=== PATIENT | female | born 1990 | race Caucasian/White ===

== ENCOUNTER → 2021-01-09 15:38 | Outpatient (CLI) | payer OTHER, SELFPAY ==
--- NOTE | ~2021-01-09 | MM_ITS ---
EXAMINATION: MM screening cherry BI w key HISTORY: Screening TECHNIQUE: Craniocaudal and mediolateral oblique 3-D tomosynthesis images were obtained and synthetic 2-D images were generated. CAD analysis was submitted and interpreted. COMPARISON: No prior mammogram is available for comparison at this institution. BREAST PARENCHYMAL COMPOSITION: There are scattered areas of fibroglandular density. FINDINGS: There is no evidence of suspicious mass, calcification, or architectural distortion to sugg est malignancy in either breast. There has been no suspicious interval change. IMPRESSION: 1. No mammographic evidence of malignancy. 2. Recommend routine screening mammography in one year. BI-RADS Category 1: Negative Reviewed, dictated and finalized at location A.
== END ==
PROVIDERS: Visit Provider Obstetrics & Gynecology
DX: Z12.31 Encounter for screening mammogram for malignant neoplasm of breast (principal)
CPT/HCPCS: 77063; 77067

== ENCOUNTER 2022-08-03 10:02 | Outpatient (CLI) | payer OTHER, SELFPAY ==
--- NOTE | ~2022-08-03 | XR_ITS ---
Right wrist Technique: PA and lateral views were obtained. Clinical History: Pain Findings: No acute fracture or dislocation is seen. Osseous alignment is anatomic. Joint spaces are p reserved. Soft tissues are unremarkable. Impression: Unremarkable right wrist radiographs. Reviewed, dictated and finalized at location M. GE MILL OPERATOR Impression: Unremarkable right wrist radiographs.
== END 2022-08-03 10:03 ==
LOC: MICIMG 10:04
PROVIDERS: PCP Family Medicine; Visit Provider Physician Assistant Medical
DX: M25.539 Pain in unspecified wrist (principal)
CPT/HCPCS: 73100

== ENCOUNTER → 2022-09-29 12:21 | Outpatient (CLI) | payer OTHER, SELFPAY ==
--- NOTE | ~2022-09-29 | MM_ITS ---
EXAMINATION: MM screening cherry BI w key HISTORY: Screening mammogram TECHNIQUE: Craniocaudal and mediolateral oblique 3-D tomosynthesis images were obtained and synthetic 2-D images were generated. CAD analysis was submitted and interpreted. COMPARISON: 01/09/2021 bilateral screening mammogram BREAST PARENCHYMAL COMPOSITION: The breasts are almost entirely fatty. FINDINGS: There is no evidence of suspicious mass, calcification, or architectural distortion to sugg est malignancy in either breast. There has been no suspicious interval change. IMPRESSION: 1. No mammographic evidence of malignancy. 2. Recommend routine screening mammography in one year. BI-RADS Category 1: Negative Reviewed, dictated and finalized at location A.
== END ==
PROVIDERS: PCP Family Medicine; Visit Provider Obstetrics & Gynecology
DX: Z12.31 Encounter for screening mammogram for malignant neoplasm of breast (principal)
CPT/HCPCS: 77063; 77067

== ENCOUNTER 2022-11-16 10:30 | Outpatient (RCR) | payer OTHER, SELFPAY ==
[2022-10-20 09:26] VITALS: BMI 50.3
== END 2022-11-22 08:31 | disposition home or self-care (01) ==
LOC: ANHDMC 10:30
PROVIDERS: PCP Family Medicine; Visit Provider Family Medicine
DX: E11.9 Type 2 diabetes mellitus without complications (principal); Z68.43 Body mass index [BMI] 50.0-59.9, adult; Z71.89 Other specified counseling; Z71.3 Dietary counseling and surveillance
CPT/HCPCS: 97802; G0108

== ENCOUNTER 2023-08-10 13:16 | Emergency (ER) | payer OTHER, SELFPAY ==
[2023-08-10] VITALS (19 sets, daily range): BP systolic 128–153; BP diastolic 81–94; PULSE 82–101; RESP 14–23; TEMP 36.6–36.9; O2SAT 93–100
--- NOTE | ~2023-08-10 | XR_ITS ---
EXAMINATION: XR chest 2V DATE: 08/10/2023 14:00 INDICATION: Dizziness TECHNIQUE: PA and lateral views of the chest are obtained. COMPARISON: 02/09/2018 FINDINGS: The lungs are free of acute opacities. No pleural effusion or pneumothorax. The cardiomedia stinal silhouette is normal. The visualized bones and soft tissues are unremarkable. IMPRESSION: 1. No acute cardiopulmonary abnormality. Reviewed, dictated and finalized at location B. ST FIRE PREVENTION SPECIALIST
--- NOTE | 2023-08-10 13:23 | ECG_ITS ---
Measurements Intervals Stitzer Rate: 97 P: 26 NE: 159 QRS: 79 QRSD: 95 T: 53 QT: 346 QTc: 441 Interpretive Statements SINUS RHYTHM BASELINE ARTIFACT- I, III, AVL, AVF NORMAL ECG NO PREVIOUS ECG AVAILABLE FOR COMPARISON Electronically Signed On 08-10-2023 14:11:50 STONECUTTER ASSISTANT by Kyle Springer D.O.
--- NOTE | 2023-08-10 13:24 | ED.DIZZY ---
HPI - Dizziness General Chief Complaint: Dizziness <Sil Frankel PA-C - Last Filed: 08/12/23 20:26> Stated Complaint: dizzy <Sil Frankel PA-C - Last Filed: 08/12/23 20:26> Time Seen by Provider: 08/10/23 13:24 <Sil Frankel PA-C - Last Filed: 08/12/23 20:26> Focused HPI: This is a 33 year old female that presents to the ER for dizziness ongoing today. Reports room spinning dizziness as well as lightheadedness. Reports palpitations/heart racing. Denies fevers, chest pain or shortness of breath. GENERAL: Well-appearing, well-nourished, and in no acute distress. HEAD: Normocephalic, atraumatic. CHEST: Clear to auscultation. ?No respiratory distress. HEART: Regular rate and rhythm.? NEURO: ?Alert and oriented x3. Patient screened in triage and initial orders placed.? ?Additional care and disposition to be based upon?diagnostic testing and treatment. <Sil Frankel PA-C - Last Filed: 08/12/23 20:26> History of Present Illness HPI Narrative: Patient is a 33-year-old female presenting with dizziness. Patient states that she was at work when she felt a popping sensation in her ear. It she then developed vertigo. States that it felt like the room was spinning and she had to sit down. It improved slightly and she was able to walk to the bathroom if she continued to feel dizzy so she called her who brought her in for evaluation. States that the vertigo has completely resolved and now she just feels a little lightheaded. No speech or vision changes. No numbness or weakness. No headache or neck pain. Denies any other complaints. 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 Diabetes type 2, controlled induced hypertension <Sil Frankel PA-C - Last Filed: 08/12/23 20:26> Surgical History Surgical History: Surgical History Delivery by section <Sil Frankel PA-C - Last Filed: 08/12/23 20:26> Family History Family History: Family History Mother Congestive heart failure Diabetes mellitus Dementia Hypertension Hyperlipidemia Acute myocardial infarction Father Blood clot in vein Sibling Alcoholism <Sil Frankel PA-C - Last Filed: 08/12/23 20:26> Social History Social History: Social History Smoking packs per day: 0.5 Smoking cigarettes per day: 10.0 Years smoked: 10 Smoking pack-years: 5.00 Smoking status: Former smoker Second hand tobacco smoke exposure: No Alcohol intake: current Substance use: never Substance use type: does not use Lack of Transportation: No Lack of Food: Never True Current Housing: I Have Housing Concerned About Future Housing: No Difficulty Paying Gas/Electric Bills: No Difficulty Paying for Meds: No Currently Unemployed: No Education: High School Diploma/GED Difficulty w/ Childcare or Family Care: No Living arrangements: with family Occupation/Education: occupation Additional occupation/education comments: Teacher Gender identity (if verbalized by the patient): Female Spiritual care concerns: No <Sil Frankel PA-C - Last Filed: 08/12/23 20:26
[2023-08-10 13:55] LABS: Basophils Percent Auto 0.5 % (0.2-1.2); Eosinophils Absolute Auto 0.2 K/mm3 (0-0.3); Hemoglobin 14.2 g/dL (12.0-15.0); Immature Granulocyte Absolute 0.02 K/mm3 (0.00-0.031); Immature Granulocyte Percent A 0.3 % (0-0.5); Lymphocytes Percent Auto 23.4 % (18.3-44.2); Mean Corpuscular HGB Conc 32.3 g/dl (32-36); Mean Corpuscular Hemoglobin 29.2 pg (26-34); Mean Corpuscular Volume 90.3 fl (80-100); Mean Platelet Volume 9.6 fl (7.4-10.4); Monocytes Absolute Auto 0.3 K/mm3 (0.1-0.6); Monocytes Percent Auto 5.3 % (2.6-8.5); Neutrophils Absolute Auto 4.3 K/mm3 (1.3-6.7); Neutrophils Percent Auto 67.5 % (45.5-73.1); Platelet Count Result 286 k/mm3 (150-375); Red Blood Count 4.87 M/mm3 (4.2-5.4); Red Cell Distribution Width 13.6 % (11.5-14.5); White Blood Count 6.4 K/mm3 (4.5-10.0)
[2023-08-10 13:58] LABS: Appearance Urine Clear (Clear); Bacteria Urine None Seen /hpf; Bilirubin Urine Negative (Negative); Blood Urine 3+ (Negative); Color Urine Yellow (Yellow); Glucose Urine UA Negative (Negative); Ketones Urine Negative (Negative); Leukocyte Esterase Ur Negative LEU/UL (Negative); Nitrate Urine Negative (Negative); Non Pathogenic Casts 0-2; Protein Urine Negative (Negative); RBC Urine 51-100 /hpf (0-2); Specific Grav Ur 1.007 (1.001-1.035); Squamous Epithelial Cell Urine Occasional /hpf (Few); Urobilinogen Urine 0.2 mg/dL (<2.0); WBC Urine 0-5 /hpf; pH Urine 7.5 (5.0-9.0)
[2023-08-10 14:08] LABS: Add Urine Microscopic? YES
[2023-08-10 14:13] LABS: Alanine Aminotransferase 19 U/L (6-35); Albumin Level 4.3 g/dL (3.5-5.1); Alkaline Phosphatase 91 U/L (38-126); Anion Gap 5 mmol/L (8-16); Aspartate Amino Transferase 23 U/L (14-36); Bilirubin,Total 0.3 mg/dL (0.2-1.3); Blood Urea Nitrogen 12 mg/dL (7-17); Calcium 9.2 mg/dL (8.4-10.2); Carbon Dioxide 29 mmol/L (22-30); Chloride 104 mmol/L (98-107); Estimated CRCL calculation 121 ml/min; Estimated Glomerular Filt Rate > 60; Glucose 120 mg/dL (65-110); Potassium 4.1 mmol/L (3.4-5.0); Sodium 138 mmol/L (137-145)
[2023-08-10] MEDS: MECLIZINE HCL 25 MG TABLET PO (19:15)
[2023-08-10] MEDS: SODIUM CHLORIDE 0.9% IV 1,000 ML 999 ML IV CONT (19:16)
== END 2023-08-10 20:52 | disposition home or self-care (01) ==
PROVIDERS: Physician Assistant; Emergency Provider Emergency Medicine; PCP Family Medicine
DX: R42 Dizziness and giddiness (principal); E11.9 Type 2 diabetes mellitus without complications
CPT/HCPCS: 36415; 71046; 80053; 81001; 85025; 93005; 96360; 99283; A9270; J7030

== ENCOUNTER 2024-09-15 08:50 | Emergency (ER) | payer OTHER, SELFPAY ==
[2024-09-15 09:26] VITALS: BP 124/72; PULSE 86; RESP 16; TEMP 36.2; O2SAT 100
--- NOTE | 2024-09-15 09:56 | ED.GENADULT ---
HPI - General Adult General Chief complaint: Upper Respiratory Infection Stated complaint: COUGH/WHEEZING/SOB Time Seen by Provider: 09/15/24 09:56 Source: patient Mode of arrival: ambulatory Limitations: no limitations History of Present Illness HPI narrative: 34-year-old female patient presents to the [facility] with complaints of cold symptoms that started yesterday. Patient any fevers that she is aware of but states she has had some chills, body aches, congestion, runny nose. Patient states she has had a cough with some shortness of breath at times and feels like she is wheezing. Patient states she has history of childhood asthma but has never been treated for asthma as an adult. Denies any nausea vomiting diarrhea. Patient states she does have shortness of breath at times when coughing. Patient has only taken Tylenol for symptoms. Related Data Allergies Allergy/AdvReac Type Severity Reaction Status Date / Time Penicillins Allergy Severe HIVES Verified 07/09/24 14:55 Review of Systems Review of Systems: CONSTITUTIONAL: Denies fever, positive body aches and chills, denies sweats. EYES: Denies visual changes, redness, or discharge. ENT: Positive rhinorrhea, congestion, denies sore throat, or otalgia. CARDIOVASCULAR: Denies chest pain, palpitations, or edema. RESPIRATORY: positive cough with intermittent dyspnea. GASTROINTESTINAL: Denies abdominal pain, nausea, vomiting, or diarrhea. GENITOURINARY: Denies dysuria or hematuria. SKIN: Denies rash or itching. MUSCULOSKELETAL: Denies back pain, joint pain, or myalgia. NEUROLOGIC: positive headache, denies numbness, or weakness. PSYCHIATRIC: Denies anxiety or depression. 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 BMI 50.0-59.9, adult Diabetes type 2, controlled induced hypertension Surgical History Surgical History Delivery by section Family History Family History Mother Congestive heart failure Diabetes mellitus Dementia Hypertension Hyperlipidemia Acute myocardial infarction Father Blood clot in vein Sibling Alcoholism Social History Social History Smoking packs per day: 0.5 Smoking cigarettes per day: 10.0 Years smoked: 10 Smoking pack-years: 5.00 Smoking status: Former smoker Second hand tobacco smoke exposure: No Alcohol intake: current Substance use: never Substance use type: does not use Lack of Transportation: No Lack of Food: Never True Current Housing: I Have Housing Concerned About Future Housing: No Difficulty Paying Gas/Electric Bills: No Difficulty Paying for Meds: No Currently Unemployed: No Education: High School Diploma/GED Difficulty w/ Childcare or Family Care: No Living arrangements: with family Occupation/Education: occupation Additional occupation/education comments: Teacher Gender identity (if verbalized by the patient): Female Spiritual care concerns: No Comments At the time of my signature I agree with nursing past medical history, surgical, social, and family history. There is no relevant family history pertinent to the presenting complaint. Exam Narrative: GENERAL: Well-appearing, well-nourished, and in no acute distress. HEAD: Normocephalic, atraumatic. EYES: PERRLA and EOMI. ENT: Nares with erythema edema noted bilaterally, no rhinorrhea or epistaxis. Mucous membranes moist. posterior pharynx with no erythema, tonsillar enlargement, exudates or lesions present. Bilateral TMs are clear no erythema or foreign bodies the canal. NECK: Supple. No lymphadenopathy CHEST: Patient has expiratory wheezing noted to left lower lobe on auscultation decreased lung sounds noted to right lower lobe and bilateral upper lobes.. No respiratory distress. Dry cough noted during exam HEART: Regular rate and rhythm. No murmur heard. Normal peripheral pulses. ABDOMEN: Soft, nontender, nondistended, normal active bowel sounds. EXTREMITIES: Normal range of motion. No edema. SKIN: Warm, dry, no rash. NEURO: No focal deficits. Alert and oriented x3. Course Course Level of Care: Express Care Visit Reevaluation(s) Reevaluation #1: Re-evaluated patient after receiving breathing treatment. Patient states she is feeling much better after the breathing treatment there is still a little bit of inspiratory and expiratory wheezing noted to the left upper and lower lobes but has improved from before the breathing treatment. Discussed with patient our discharge plan will be to discharge her home with oral steroids, and albuterol inhaler and Tessalon Perles for the cough. Discussed with her this is most likely viral and will take some time to go get over. Patient verbalized understanding denies any other questions or concerns at this time. Date: 09/15/24 Time: 10:39 Vital Signs Vital signs: Vital Signs Temperature 36.2 C L 09/15/24 09:26 Pulse Rate 86 09/15/24 09:26 Respiratory Rate 16 09/15/24 09:26 Blood Pressure 124/72 09/15/24 09:26 Pulse Oximetry 100 09/15/24 09:26 Temperature 36.2 C L 09/15/24 09:26 Pulse Rate 90 09/15/24 10:25 Respiratory Rate 18 09/15/24 10:25 Blood Pressure 124/72 09/15/24 09:26 Pulse Oximetry 98 09/15/24 10:25 Oxygen Delivery Room Air 09/15/24 09:52 Vital signs reviewed. Medical Decision Making MDM Narrative Medical decision making narrative: plan care for patients to swab her today for influenza and COVID since her symptoms just started yesterday. We will also provide her breathing treatments in the clinic today to see if we can decrease the wheezing noted in the lung sounds. Differential Diagnosis Differential Diagnosis: Differential diagnosis: Allergic rhinitis, chronic sinusitis, tonsillitis, acute sinusitis, infectious mononucleosis, seasonal influenza, pertussis, diphtheria, meningococcal disease, viral syndrome, viral bronchitis, RSV, COVID-19 Vital Signs Vital Signs: Vital Signs Temperature 36.2 C L 09/15/24 09:26 Pulse Rate 86 09/15/24 09:26 Respiratory Rate 16 09/15/24 09:26 Blood Pressure 124/72 09/15/24 09:26 Pulse Oximetry 100 09/15/24 09:26 Temperature 36.2 C L 09/15/24 09:26 Pulse Rate 90 09/15/24 10:25 Respiratory Rate 18 09/15/24 10:25 Blood Pressure 124/72 09/15/24 09:26 Pulse Oximetry 98 09/15/24 10:25 Oxygen Delivery Room Air 09/15/24 09:52 Lab Data Labs: Lab Results 09/15/24 Range/Units 10:32 POC Influenza A Ag Negative (Negative) POC Influenza B Ag Negative (Negative) POC SARS CoV-2 Ag Negative (Negative) Critical Care Time Critical Care Time Critical Care Time: No Discharge Plan Discharge Clinical Impression: Viral URI with cough, Wheezing Patient Disposition: Home Condition: Stable Instructions: Antibiotic Form, Viral Syndrome (ED) Additional Instructions: Viral illness may last between 7-12days; antibiotic is NOT recommended at this time. Recommend antihistamine such as Benadryl at night time and Claritin/Zyrtec/Tiffanie during the day Cough syrup may cause drowsiness; avoid driving or take it at night time. Use inhaler as needed for cough, wheezing, shortness of breath or chest tightness. take oral steroids in the morning with food. Also, recommend symptomatic treatment includes: rest, fluids, and increase humidity of the air at home. Recommend Acetaminophen or nonsteroidal anti-inflammatory agents (NSAIDs) as directed in the bottle to reduce fever and/pain/headache. Avoid smoking/second-hand smoke. Limit visits to areas with large crowds. Please schedule a follow-up visit with your personal physician for further evaluation and treatment within 3-5days. Including recheck and discussion of your blood pressure. If your symptoms persist, change or worsen significantly before you can contact your personal physician then please, without delay, go to the emergency department for further evaluation. Patient Language: German Prescriptions: New benzonatate 200 mg capsule 200 mg PO TID PRN (Reason: cough) 10 Days Qty: 30 0RF prednisone 20 mg tablet 40 mg PO DAILY 5 Days Qty: 10 0RF albuterol sulfate [Ventolin HFA] 90 mcg/actuation HFA aerosol inhaler 2 puff INHALATION .Q4 hours PRN (Reason: cough) Qty: 18 0RF No Action metformin 500 mg tablet extended release 24 hr 500 mg PO ONCE Qty: 30 5RF meclizine 25 mg tablet 25 mg PO TID PRN (Reason: dizziness) Qty: 20 0RF (DME) OneTouch Verio test strips Strip See Rx Instructions .Route Qty: 100 0RF Rx Instructions: Test glucose bid for diabetes (DME) lancets [OneTouch Delica Lancets] 33 gauge misc See Rx Instructions .Route Qty: 100 0RF Rx Instructions: Test glucose bid for diabetes Ozempic 1 mg/dose (4 mg/3 mL) pen injector 1 mg subcut WEEKLY Qty: 3 2RF mupirocin 2 % ointment 1 applic topical BID Qty: 50 0RF Follow-up/Referrals: Willow Cruz, PAC [Primary Care Provider] - Time of Disposition: 10:39
[2024-09-15] MEDS: IPRATROPIUM 0.5 MG/ALBUTEROL SULFATE 2.5 MG AMPUL.NEB 3 ML INHALATION (10:12)
[2024-09-15 10:25] VITALS: PULSE 90; RESP 18; O2SAT 98
[2024-09-15 10:34] LABS: EDCOVIDSCREEN Negative (Negative); EDINFLUASCREEN Negative (Negative); EDINFLUBSCREEN Negative (Negative)
== END 2024-09-15 10:43 | disposition home or self-care (01) ==
PROVIDERS: Emergency Provider Nurse Practitioner Family; PCP Physician Assistant Medical
DX: J06.9 Acute upper respiratory infection, unspecified (principal); B97.89 Other viral agents as the cause of diseases classified elsewhere; R06.2 Wheezing; Z87.891 Personal history of nicotine dependence; Z20.822 Contact with and (suspected) exposure to COVID-19
CPT/HCPCS: 87426; 87804; 99213; G0463

== ENCOUNTER 2024-12-03 15:01 | Outpatient (CLI) | payer OTHER, SELFPAY ==
--- NOTE | ~2024-12-03 | MM_ITS ---
EXAMINATION: MM screening cherry BI w key HISTORY: Screening mammogram, family history of breast cancer in her mother. TECHNIQUE: Craniocaudal and mediolateral oblique 3-D tomosynthesis images were obtained and synthetic 2-D images were generated. CAD analysis was submitted and interpreted. COMPARISON: 09/29/2022, 01/09/2021 BREAST PARENCHYMAL COMPOSITION:Not Dense. The breasts are almost entirely fatty FINDINGS: No suspicious mass, calcification, or architectural distortion are identified in either rylie ast to suggest malignancy. There has been no suspicious interval change. IMPRESSION: No mammographic evidence of malignancy. Recommend routine screening mammography in one year. BI-RADS Category 1: Negative Reviewed, dictated and finalized at location .
== END 2024-12-03 15:02 | disposition home or self-care (01) ==
LOC: MICIMG 15:02
PROVIDERS: PCP Obstetrics & Gynecology; Visit Provider Obstetrics & Gynecology
DX: Z12.31 Encounter for screening mammogram for malignant neoplasm of breast (principal)
CPT/HCPCS: 77063; 77067

== ENCOUNTER 2024-12-13 00:21 | Day surgery (SDC) | payer OTHER, SELFPAY ==
[2024-11-20 12:34] VITALS: BMI 47.0
--- OUTSIDE RECORDS SUMMARY | 2024-12-13 00:24 | XMS_ITS | Clinical Summary ---
Author Organization [facility] [address] Address [address] [place] [id number] Care Team Providers Care Bistro Server Name Role Phone Brisa Jean Baptiste Primary Care Provider [phone] Allergies Active Allergy Reactions Criticality Noted Date Comments Penicillins Hives Medium 08/06/2022 Medications metFORMIN XR (GLUCOPHAGE XR) 500 mg 24 hr tablet Take 500 mg by mouth 2 (two) times a day 06/20/2022 Active Active Problems No known active problems Social History Tobacco Use Types Packs/Day Years Used Date Smoking Tobacco: Never Assessed Comments Unknown Sex and Gender Information Value Date Recorded Sex Assigned at Not on file Legal Sex Female 5:24 PM STEREO OPERATOR Gender Identity Not on file Sexual Orientation Not on file Obstetrics History Last Filed Vital Signs Vital Sign Reading Time Taken Comments Blood Pressure 138/98 08/06/2022 7:14 PM STEREO OPERATOR Pulse 104 08/06/2022 7:14 PM STEREO OPERATOR Temperature 37.1 C (98.7 F) 08/06/2022 7:14 PM STEREO OPERATOR Respiratory Rate 20 08/06/2022 7:14 PM STEREO OPERATOR Oxygen Saturation 98% 08/06/2022 7:14 PM STEREO OPERATOR Inhaled Oxygen Concentration - - Weight 137 kg (302 lb) 08/06/2022 7:14 PM STEREO OPERATOR Height 162.6 cm (5' 4) 08/06/2022 7:14 PM STEREO OPERATOR Body Mass Index 51.84 08/06/2022 7:14 PM STEREO OPERATOR Plan of Treatment Health Maintenance Due Date Last Done Comments Cervical Cancer Screening 1988 Depression Screening 1988 Hepatitis C Screening 1988 Varicella Vaccines (1 of 2 - 13+ 2-dose series) 02/10/2001 Hepatitis B Screening 02/10/2006 Regular Well Visit/Exam 18-64 02/10/2006 Influenza Vaccine (Season Ended) 2025 DTaP/Tdap/Td Vaccine (2 - Td or Tdap) 06/07/2029 06/07/2019 HPV Vaccines Aged Out No longer eligi ble based on patient's age to complete this topic Pneumococcal vaccine <65 Aged Out No longer eligible based on patient's age to complete this topic Insurance [employer] OPEN ACCESS [employer] OPEN ACCESS Care Teams Bistro Server Relationship Specialty Start Date End Date Brisa Jean Baptiste [address] [facility] [address] [place] [address] PCP - General Corner Cutter Machine Operator 08/06/22
--- OUTSIDE RECORDS SUMMARY | 2024-12-13 00:24 | XMS_ITS | Referral Summary ---
Author Organization [facility] [place] [address] Address [address] [place] [id number] Care Team Providers Care Children'S Author Name Role Phone Brisa Jean Baptiste Primary Care Provider [phone] Allergies Active Allergy Reactions Criticality Noted Date [...] on file Legal Sex Female 5:24 PM TRAFFIC ROUTING ENGINEER Gender Identity Not on file Sexual Orientation Not on file Last Filed Vital Signs Vital Sign Reading Time Taken Comments Blood Pressure 138/98 08/06/2022 7:14 PM TRAFFIC ROUTING ENGINEER Pulse 104 08/06/2022 7:14 PM TRAFFIC ROUTING ENGINEER Temperature 37.1 C (98.7 F) 08/06/2022 7:14 PM TRAFFIC ROUTING ENGINEER Respiratory Rate 20 08/06/2022 7:14 PM TRAFFIC ROUTING ENGINEER Oxygen Saturation 98% 08/06/2022 7:14 PM TRAFFIC ROUTING ENGINEER Inhaled Oxygen Concentration - - Weight 137 kg (302 lb) 08/06/2022 7:14 PM TRAFFIC ROUTING ENGINEER Height 162.6 cm (5' 4) 08/06/2022 7:14 PM TRAFFIC ROUTING ENGINEER Body Mass Index 51.84 08/06/2022 7:14 PM TRAFFIC ROUTING ENGINEER Plan of Treatment Not on file Insurance [facility] OPEN ACCESS [facility] OPEN ACCESS [id number] [place] [id number] Care Teams Children'S Author Relationship Specialty Start Date End Date Brisa Jean Baptiste [address] [facility] [address] [place] [address] PCP - General Manager Agency 08/06/22
--- OUTSIDE RECORDS SUMMARY | 2024-12-13 00:24 | XMS_ITS | Clinical Summary ---
Author Organization [facility] [employer] Address [address] [place] [address] Care Team Providers Care Quality Assurance Qa Lab Analyst Name Role Phone Lloyd Rivas MD Unavailable [phone] Source Comments [facility],non-owned Affiliates and Associated Physician Practices is amultiple site organization consisting of ambulatory clinics and hospital sitesin [place], [place], [place] and [place]. This disclosure is being madepursuant to the Care Everywhere program and may not contain all information available regarding this patient. Last updated 18.[facility] [employer] Allergies Active Allergy Reactions Criticality Noted Date Comments Penicillins Rash,Swelling Medium 02/20/2016 Medications * Be aware that medications may not be up to date on this document. Alwaysverify current medications with the patient. METFORMIN HCL PO Active albuterol HFA (PROVENTIL;VENT ABRAM;PROAIR) 108 (90 BASE) MCG/ACT inhaler Inhale 2 puffs by mouth every 6 hours as needed for Shortness of Breath, Wheezing or Cough 1 Inhaler 9 Active fluticasone propionate (FLONASE) 50 MCG/ACT nasal spray [place] 2 sprays into each nostril once daily 1 bottles 9 Active ondansetron (ZOFRAN) 4 MG tablet Take 1 tablet by mouth every 8 hours as needed for Nausea/Vomitin g 15 tablet 9 Active Social History Tobacco Use Types Packs/Day Years Used Date Smoking Tobacco: Never Assessed Comments Unknown Sex and Gender Information Value Date Recorded Sex Assigned at Not on file Legal Sex Female 2:31 PM CDT Gender Identity Not on file Sexual Orientation Not on file Last Filed Vital Signs Vital Sign Reading Time Taken Comments Blood Pressure 122/74 07/28/2018 5:31 PM FISHERIES MANAGEMENT BIOLOGIST Pulse 97 07/28/2018 5:31 PM FISHERIES MANAGEMENT BIOLOGIST Temperature 36.8 C (98.2 F) 07/28/2018 5:31 PM FISHERIES MANAGEMENT BIOLOGIST Respiratory Rate - - Oxygen Saturation 97% 07/28/2018 5:31 PM FISHERIES MANAGEMENT BIOLOGIST Inhaled Oxygen Concentration - - Weight 127 kg (280 lb) 07/28/2018 5:31 PM FISHERIES MANAGEMENT BIOLOGIST Height 162.6 cm (5' 4) 07/28/2018 5:31 PM FISHERIES MANAGEMENT BIOLOGIST Body Mass Index 48.06 07/28/2018 5:31 PM FISHERIES MANAGEMENT BIOLOGIST Plan of Treatment Health Maintenance Due Date Last Done Comments HIV SCREENING 02/10/2003 HEPATITIS C SCREENING 02/06/2006 DTAP/TDAP/TD VACCINES (1 - Tdap) 02/10/2007 HEPATITIS B VACCINE (1 of 3 - 19+ 3-dose series) 02/10/2007 COVID-19 VACCINE (1 - 2023-2 5 season) 2024 DEPRESSION SCREENING 06/06/2024 INFLUENZA VACCINE (Season Ended) 2025 ZOSTER VACCINE (1 of 2) 02/10/2038 HIB VACCINE Aged Out No longer eligi ble based on patient's age to complete this topic HPV VACCINE Aged Out No longer eligi ble based on patient's age to complete this topic MENINGOCOCCAL (Group B) VACC INE SHARED DECISION-MAKING Aged Out No longer eligibl e based on patient's age to complete this topic MENINGOCOCCAL GROUPS A/C/Y/W VACCINE Aged Out No longer eligible b ased on patient's age to complete this topic PNEUMOCOCCAL VACCINE Aged Out No long er eligible based on patient's age to complete this topic Insurance [employer] Care Teams Quality Assurance Qa Lab Analyst Relationship Specialty Start Date End Date Lloyd Rivas MD Family Medicine 07/28/18
[2024-12-13 12:38] VITALS: BP 139/90; PULSE 94; RESP 18; TEMP 36.9; O2SAT 99; BMI 49.6
[2024-12-13 12:41] LABS: BEDSIDEPREGUCG Negative (Negative)
[2024-12-13] MEDS: LACTATED RINGERS 1,000 ML 150 ML IV CONT (12:54)
--- NOTE | 2024-12-13 13:57 | PM.IMHP ---
H&P: HPI History of Present Illness Date/Time: 12/13/24 13:57 Chief Complaint: Family history of colon cancer Narrative: This patient has family history of colorectal cancer. a 1st degree cousin had colon cancer at age 40. 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 BMI 50.0-59.9, adult Diabetes type 2, controlled induced hypertension Surgical History Surgical History Delivery by section Family History Family History Mother Congestive heart failure Diabetes mellitus Dementia Hypertension Hyperlipidemia Acute myocardial infarction Father Blood clot in vein Sibling Alcoholism Social History Social History Smoking packs per day: 0.5 Smoking cigarettes per day: 10.0 Years smoked: 10 Smoking pack-years: 5.00 Smoking status: Former smoker Tobacco type: cigarettes Second hand tobacco smoke exposure: No Alcohol intake: current Substance use: never Substance use type: does not use Lack of Transportation: No Lack of Food: Never True Current Housing: I Have Housing Concerned About Future Housing: No Difficulty Paying Gas/Electric Bills: No Difficulty Paying for Meds: No Currently Unemployed: No Education: High School Diploma/GED Difficulty w/ Childcare or Family Care: No Living arrangements: with family Occupation/Education: occupation Additional occupation/education comments: Teacher Gender identity (if verbalized by the patient): Female Spiritual care concerns: No Meds Home Medications and Allergies Home Medications ?Medication ?Instructions ?Recorded ?Confirmed ?Type blood sugar diagnostic (OneTouch #100 ea 09/03/22 10/08/24 Rx Verio test strips) lancets 33 gauge (OneTouch Delica #100 ea 09/03/22 10/08/24 Rx Lancets) meclizine 25 mg tablet 25 mg PO TID PRN dizziness #20 tabs 08/10/23 11/20/24 Rx albuterol sulfate 90 mcg/actuation 2 puff inhalation .Q4 hours PRN 09/15/24 11/20/24 Rx aerosol inhaler (Ventolin HFA) cough #18 grams semaglutide 2 mg/dose (8 mg/3 mL) 2 mg (0.75 mL) subcut WEEKLY #3 mL 10/30/24 12/13/24 Rx subcutaneous pen injector (Ozempic) mupirocin 2 % topical ointment 1 applic topical BID PRN skin 11/20/24 11/20/24 History irritation metformin 500 mg tablet,extended 500 mg PO ONCE #30 tabs 12/02/24 12/13/24 Rx release 24 hr Allergies Allergy/AdvReac Type Severity Reaction Status Date / Time Penicillins Allergy Severe HIVES Verified 12/13/24 12:35 Vital Signs Vital Signs - 24 hr 12/13/24 12:38 Temperature 98.5 F Pulse Rate 94 Respiratory Rate 18 Blood Pressure 139/90 Pulse Oximetry 99 Oxygen Delivery Room Air Exam Const: General: cooperative and healthy appearing Resp: Effort & Inspection: normal respiratory effort and able to speak in complete sentences Auscultation: clear to auscultation bilaterally Cardio: Rate: regular rate Rhythm: regular rhythm GI: Inspection: normal to inspection GI Palp: No No hepatosplenomegaly present Auscultation: normal bowel sounds Rectal Exam: deferred Skin: General skin exam: normal color Psych: Appearance: grossly normal Mental Status: mental status grossly normal Assessment and Plan Assessment and plan (1) Family hx of colon cancer: Code(s): Z80.0 - Family history of malignant neoplasm of digestive organs Status: Acute Assessment and Plan: The patient is deemed a good candidate for the procedure. Consent signed. Will proceed.
--- NOTE | 2024-12-13 14:01 | WPDANESEPPF ---
Anes - Initial Pre Proc Eval Procedure: Operation Date: 12/13/24 14:00 Proposed Procedures p Screening Colonoscopy - Misha Jorge MD Date/Time: 12/13/24 14:01 Surgeon: Misha Jorge MD Pre Op Diagnosis: Family history of malignant neoplasm of digestive Patient Data Age: 34 Gender: F Height: 1.6 m Weight: 127 kg Last Vital Signs Temp 98.5 F 12/13/24 12:38 Pulse 94 12/13/24 12:38 Resp 18 12/13/24 12:38 BP 139/90 12/13/24 12:38 Pulse Ox 99 12/13/24 12:38 O2 Del Method Room Air 12/13/24 12:38 Allergies Allergy/AdvReac Type Severity Reaction Status Date / Time Penicillins Allergy Severe HIVES Verified 12/13/24 12:35 Home Medications ?Medication ?Instructions ?Recorded ?Confirmed ?Type blood sugar diagnostic (OneTouch #100 ea 09/03/22 10/08/24 Rx Verio test strips) lancets 33 gauge (OneTouch Delica #100 ea 09/03/22 10/08/24 Rx Lancets) meclizine 25 mg tablet 25 mg PO TID PRN dizziness #20 tabs 08/10/23 11/20/24 Rx albuterol sulfate 90 mcg/actuation 2 puff inhalation .Q4 hours PRN 09/15/24 11/20/24 Rx aerosol inhaler (Ventolin HFA) cough #18 grams semaglutide 2 mg/dose (8 mg/3 mL) 2 mg (0.75 mL) subcut WEEKLY #3 mL 10/30/24 12/13/24 Rx subcutaneous pen injector (Ozempic) mupirocin 2 % topical ointment 1 applic topical BID PRN skin 11/20/24 11/20/24 History irritation metformin 500 mg tablet,extended 500 mg PO ONCE #30 tabs 12/02/24 12/13/24 Rx release 24 hr Laboratory Tests 12/13/24 12/13/24 12:38 12:53 POC Capillary Glucose 92 mg/dl (65-105) POC Urine HCG, Qual Negative (Negative) Patient hx anesthesia problems: none Family hx anesthesia problems: none Results Review: All pre-operative results and documents have been reviewed as part of the pre-operative evaluation. 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 BMI 50.0-59.9, adult Diabetes type 2, controlled induced hypertension Surgical History Surgical History (Reviewed 12/13/24 @ 14: by Sylvester Toro DO) Delivery by section Family History Family History Mother Congestive heart failure Diabetes mellitus Dementia Hypertension Hyperlipidemia Acute myocardial infarction Father Blood clot in vein Sibling Alcoholism Social History Social History (Reviewed 12/13/24 @ 14: by Sylvester Toro DO) Smoking packs per day: 0.5 Smoking cigarettes per day: 10.0 Years smoked: 10 Smoking pack-years: 5.00 Smoking status: Former smoker Tobacco type: cigarettes Second hand tobacco smoke exposure: No Alcohol intake: current Substance use: never Substance use type: does not use Lack of Transportation: No Lack of Food: Never True Current Housing: I Have Housing Concerned About Future Housing: No Difficulty Paying Gas/Electric Bills: No Difficulty Paying for Meds: No Currently Unemployed: No Education: High School Diploma/GED Difficulty w/ Childcare or Family Care: No Living arrangements: with family Occupation/Education: occupation Additional occupation/education comments: Teacher Gender identity (if verbalized by the patient): Female Spiritual care concerns: No Anes - Eval Final PreProcedure Day of Procedure 12/13/24 14:01 Patient weight: super morbidly obese Lungs: normal air movement Airway: Mallampati scale class II Neurological: alert and oriented Last oral intake: >/= 8 hours ASA classification: III Emergent: no Anesthetic plan: proceed Anesthesia type and monitoring: general GIVS and standard monitoring Results Review: All pre-operative results and documents have been reviewed as part of the pre-operative evaluation. BMI 50, DM. Informed Consent: The patient's anesthetic plan and its attendant risks and benefits were discussed with the patient/family/POA. Questions were solicited and answers provided to the satisfaction of the patient/family/POA.
[2024-12-13 14:24] VITALS: BP 121/76; PULSE 79; RESP 24; O2SAT 98
[2024-12-13 14:34] VITALS: BP 127/86; PULSE 77; RESP 20; O2SAT 99
[2024-12-13 14:44] VITALS: BP 129/86; PULSE 81; RESP 23; O2SAT 100
== END 2024-12-13 14:55 | disposition home or self-care (01) ==
PROVIDERS: Anesthesiology; PCP Physician Assistant Medical; Referring Provider Physician Assistant Medical; Visit Provider Internal Medicine Gastroenterology
PROC: 0DJD8ZZ Inspection of Lower Intestinal Tract, Via Natural or Artificial Opening Endoscopic (ICD-10-PCS; CPT 45378; principal; 2024-12-13 14:00)
DX: Z12.11 Encounter for screening for malignant neoplasm of colon (principal); E11.9 Type 2 diabetes mellitus without complications; E66.01 Morbid (severe) obesity due to excess calories; Z68.42 Body mass index [BMI] 45.0-49.9, adult; Z79.51 Long term (current) use of inhaled steroids; Z79.85 Long-term (current) use of injectable non-insulin antidiabetic drugs; Z79.84 Long term (current) use of oral hypoglycemic drugs; Z98.890 Other specified postprocedural states; Z87.891 Personal history of nicotine dependence; Z80.0 Family history of malignant neoplasm of digestive organs; Z82.49 Family history of ischemic heart disease and other diseases of the circulatory system
CPT/HCPCS: 45378; 82948; J2003; J2704; J7120